=== PATIENT | female | born 2005 | race Two or more races ===

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

== ENCOUNTER 2024-09-29 21:37 | Emergency (ER) | payer MEDICAID, OTHER ==
[~2024-09-29] VITALS: Ht 160 cm; Wt 72.7 kg
[2024-09-29 22:00] VITALS: BP 118/71; PULSE 79; RESP 14; TEMP 98.9; O2SAT 99
[2024-09-29 22:36] LABS: PLATELET COUNT (AUTO) 267 K/uL (150-450); RED BLOOD CELL COUNT(AUTO) 4.74 MIL/uL (4.00-5.20); RED CELL DISTRIBUTION WIDTH 14.4 % (11.5-14.5); WHITE BLOOD COUNT (AUTO) 12.3 K/uL (4.5-11.0)
[2024-09-29 22:43] LABS: CALCIUM, TOTAL 9.1 mg/dL (8.8-10.5); CREATININE 0.68 mg/dL (0.60-1.30); GLOMERULAR FILTR. RATE CALC > 60 mL/min (>60); GLUCOSE,RANDOM 91 mg/dL (70-110); SODIUM SERUM 140 mmol/L (136-145); UREA NITROGEN, BLOOD 10 mg/dL (7-18)
[2024-09-29 22:51] LABS: TROPONIN I-HIGH SENSITIVITY 6 ng/L (<51)
== END 2024-09-29 23:39 | disposition home or self-care (01) ==
LOC: EMS 21:37
DX: R07.89 Other chest pain (principal)
CPT/HCPCS: 71045; 80048; 84484; 85025; 93005; 99285; 36415-L1; 36415-TC